=== PATIENT | female | born 1980 | race Caucasian/White ===

== ENCOUNTER → 2023-08-22 17:57 | Outpatient (REF) | payer OTHER, SELFPAY | LOC: MRI 17:57 | PROVIDERS: ATTENDING PHYSICIAN Urology | DX: C68.9 Malignant neoplasm of urinary organ, unspecified (principal) | CPT/HCPCS: 72197; A9575 ==

== ENCOUNTER → 2024-04-13 09:14 | Outpatient (REF) | payer OTHER, SELFPAY | LOC: WDC 09:14 | PROVIDERS: ATTENDING PHYSICIAN Obstetrics & Gynecology; FAMILY PHYSICIAN Nurse Practitioner Adult Health | DX: N64.4 Mastodynia (principal) | CPT/HCPCS: 76642; 77062; 77066 ==

== ENCOUNTER → 2024-08-22 09:49 | Outpatient (REF) | payer OTHER, SELFPAY | LOC: MRI 3T 09:49 | PROVIDERS: ATTENDING PHYSICIAN Podiatrist; FAMILY PHYSICIAN Nurse Practitioner Adult Health | DX: M77.42 Metatarsalgia, left foot (principal) | CPT/HCPCS: 73718 ==